=== PATIENT | male | born 1940 | race Caucasian/White ===

== ENCOUNTER 2024-05-22 02:11 | Outpatient (CLI) | payer OTHER, SELFPAY ==
--- NOTE | 2024-05-22 | DI.MRI_ITS ---
Exam(s) MR ABDOMEN WO/W EXAM: MR ABDOMEN WO/W CLINICAL HISTORY: [facility][id number], HCC C22.0 LIVER CANCER C22.8 S/P ABLATION TECHNIQUE: Multiplanar multisequence MRI was performed on a 1.5 johnny unit with both pre and post co ntrast infused sequences. Contrast injected sequences were performed following IV injection of 18 cc of Dotarem. COMPARISON: MR MR ABDOMEN W WO CONTRAST from 08/05/2023 MR MR ABDOMEN W WO CONTRAST from 10/07/[address] ABDOMEN PELVIS W CONTRAST from 01/20/2024 FINDINGS: Please note that this dictation is a copy of a dictation from [facility]. This case was sent for reading to [facility] as this type of case is unusual for this institut ion and the radiologists at this institution are not familiar with reading this type of involved live r case. VISUALIZED LUNG BASES: Tiny pleural effusions are evident There is a small amount of perihepatic ascites. LIVER: There is a history of cirrhosis and hepatocellular carcinoma and prior ablation procedure and Y90 radiation segmentectomy therapy. Liver is again noted to be cirrhotic in appearance. There are multiple areas of signal abnormality most probably corresponding to areas of prior treated lesions exhibiting liquefaction tumor necrosis. There is a large area of nodular appearing arterial phase enhancement in the right hepatic lobe which exhibits decreasing enhancement on the portal venous phase The previously described 7 mm arterial phase hyperenhancing lesion in segment 1 described on the prio r study of 10/07/2023 is not seen on today's study. In segment 2 there is a 17 mm lesion site of prior ablation with no enhancement; LiRads Treated Nonvi able (series [id number]/image 54) In segment 6 located posteromedially there is a site of prior ablation measuring 3.4 cm, not exhibiti ng enhancement; LiRads Treated Nonviable (series [id number]/image 58) In segment 6 anteromedially (series [id number]/image 54) there is a finding measuring 3.6 x 2.4 cm, sli ghtly decreased in size, with mild diffuse arterial internal enhancement and which exhibits washout o n delayed images. LiRads 3; treated possible viable lesion. Adjacent to this are branching areas of hypoenhancement best seen on series [id number]/image 61 which are concerning for tumor thrombus in the right portal vein branches and not definitely seen on the prior exam; LR_TIV In segment 7 there are previously treated adjacent lesions (series [id number]/image 70) with large area of central nonenhancement measuring 4 x 7.1 cm with surrounding large area of arterial phase nodular hy per enhancement in the right hepatic lobe and with more prominent nodular arterial enhancement when c ompared to the prior study and with subtle nodular areas of questionable delayed nodular washout (as seen on series [id number]/image 46); LiRads 4/5 BILIARY: There is no obvious gallbladder pathology. CBD mildly dilated. Measures 9-10 mm. PANCREAS: There is no evidence of pancreatic mass nor dilatation of the pancreatic duct. SPLEEN: Splenomegaly again noted. Cephalocaudal length of the spleen is 18 cm.Splenic and portal vein s are patent ADRENALS: There are no significant adrenal masses. KIDNEYS: No solid renal masses. No hydronephrosis.Bilateral benign cysts again noted. ABDOMINAL AORTA: Not enlarged and there is no significant para-aortic adenopathy. LYMPH NODES: Enlarged lymph nodes again noted in portal region and within the abdominal fat adjacent to the size hiatal hernia. This right-sided lymph node measures 2.7 cm., slightly larger than previou s ANTERIOR ABDOMINAL WALL/GI: There is no evidence of significant anterior abdominal wall hernia in the field of view of this study.Is no evidence of obvious bowel obstruction. OSSEOUS: There are no lytic osseous lesions in the field of view of this study. OTHER: Gastric fundal diverticulum again noted. IMPRESSION: 1. Large area of arterial hyperenhancement in the right hepatic lobe. 2. There is one lesion demonstrating washout and pseudo capsule formation consistent with probable r esidual tumor. 3. There is likely partially occlusive tumor thrombus in the right intrahepatic portal venous branche s. 4. There are multiple treated nonviable sites in the liver from prior ablation and Y 90 therapy as de scribed. 5. Enlarged lymph node noted within the hiatal hernia fat to the right of the involve stomach, this m easuring 2.7 cm, slightly larger than previous measurement. DATA REPOSITORY:
[2024-05-22] MEDS: Gadoterate meglumine 20 ML VIAL 18 ML IVP (08:37)
[2024-05-22] MEDS: Normal Saline - Diluent 50 ML VIAL IJ (08:38)
[2024-05-22 08:51] LABS: Abs Immature Grans 0.03 10^3/uL (0.0-0.06); Absolute Basophil Count 0.06 10^3/uL (0.0-0.2); Absolute Eosinophil Count 0.07 10^3/uL (0.0-0.7); Absolute Lymphocyte Count 0.91 10^3/uL (1.2-3.4); Absolute Monocyte Count 0.76 10^3/uL (0.1-0.8); Absolute Neutrophil Count 5.57 10^3/uL (1.2-6.7); Basophils % 0.8 %; Eosinophils % 0.9 %; HCT 35.6 % (40.0-50.0); HGB 11.2 g/dL (13.5-17.5); Immature Grans % 0.4 %; Lymphocytes % 12.3 %; MCH 28.9 pg (27.0-33.0); MCHC 31.5 % (32.0-36.0); MCV 92 fL (80-95); MPV 9.8 fL (8.0-11.0); Monocytes % 10.3 %; Neutrophils % 75.3 %; Platelet Count 130 10^3/uL (130-400); RBC 3.87 10^6/uL (4.36-5.78); RDW 16.6 % (11.8-14.1); RDW-SD 55.8 fL
[2024-05-22 09:02] LABS: INR 1.3 (0.9-1.1); Prothrombin Time 12.8 sec (9.1-11.1)
[2024-05-22 09:21] LABS: ALT 16 U/L (16-63); AST 30 U/L (15-37); Albumin 1.9 g/dL (3.4-5.0); Alkaline Phosphatase 257 U/L (46-116); Anion Gap 8.4 mmol/L (3-11); BUN 23 mg/dL (7-18); CO2 24.6 mmol/L (21.0-32.0); CREATININE 1.5 mg/dL (0.70-1.30); Calcium 9.1 mg/dL (8.5-10.1); Chloride 104 mmol/L (98-107); Estimated GFR 46.48 (mL/min/1.73m2); Glucose 222 mg/dL (74-106); Potassium 4.2 mmol/L (3.5-5.1); Sodium 137 mmol/L (136-145); Total Protein 7.7 g/dL (6.4-8.2)
--- NOTE | 2024-05-22 16:54 | DI.VRAD_ITS ---
Addendum created by Marilynn Castillo MD on 05/23/2024 5:23:56 PM EDT: Comparison to prior scan 10/07/[address] of 01/20/2024:Motion artifact does moderately limit the sensitivity of this examination. 7 mm arterial phase hyperenhancing lesion in segment 1 on prior exam, not well seen on today's exam demonstrates no appreciable enhancement or washout in this area. Observation 1: Segment 2, series [id number] image 54, 17 mm lesion site of prior ablation, with no enhancement. Lie rads treated nonviable. Observation 2: Segment 6 posteromedial, site of prior ablation, series 77543, image 58, measuring 3.4 cm, no enhancement. LI-RADS treatable nonviable Observation 3: Segment 6 anteromedial, series 22679, image 54, measures 36 x 24 mm, slightly decreased in size, with mild diffuse arterial phase internal iso enhancement enhancement which washes out on delayed phases. LI-RADS 3 treated possibly viable lesion. Adjacent to this are branching areas of hypoenhancement best seen on series 26890, image 61 which are concerning for tumor thrombus in right portal vein branches and not definitively seen on prior exam. LR-TIV Observation 4: segment 7 previously treated adjacent lesions, series 71504 image 70, large area of central non enhancement measuring 4 x 7.1 cm with surrounding large area of arterial phase nodular hyperenhancement in the right lobe more prominent nodular arterial phase enhancement than on the prior exam, with subtle nodular areas of questionable delayed nodular washout for example series 66771, image 46. LI-RADS 4/5 Initial report created on 05/22/2024 4:54:20 PM EDT: PROCEDURE INFORMATION: Exam: MR Abdomen Without and With Contrast Exam date and time: 05/22/2024 8:46 AM Age: 83 years old Clinical indication: Other: Radioembolization, restaging, liver cancer, S/P ablation TECHNIQUE: Imaging protocol: Magnetic resonance imaging of the abdomen without and with contrast. Contrast material: DOTAREM; Contrast volume: 18 ml; Contrast route: INTRAVENOUS (IV); COMPARISON: CT ABDOMEN PELVIS W CONTRAST 01/20/2024 12:09 AM FINDINGS: Pleural spaces: Trace pleural effusions. Liver: There is a large area of nodular appearing arterial phase hyperenhancement in the right lobe which decreases on the portal venous phase. A 37 mm lesion best seen on series 25309 image 53 demonstrates washout and pseudo capsule formation. Several other areas demonstrating no enhancement and fluid signal compatible with treated lesions with associated liquefaction tumor necrosis. There is some partial thrombus in the posterior right portal venous branches. The liver is nodular in contour, suggesting cirrhosis. Gallbladder and biliary ducts: Unremarkable. No stones. No ductal dilation. Pancreas: Unremarkable. No ductal dilation. Spleen: Splenomegaly at 18 cm. Adrenal glands: Unremarkable. No mass. Kidneys: There are multiple simple renal cysts. There are multiple simple renal cysts. Stomach and bowel: Gastric diverticulum in the fundal region. There is no evidence of intestinal perforation or obstruction. Intraperitoneal space: Mild perihepatic ascites. Vasculature: No abdominal aortic aneurysm. Lymph nodes: Periportal and Tootie aortic lymphadenopathy. 25 mm lymph node within a paraesophageal hiatal hernia sac. Bones/joints: Unremarkable. No suspicious lesions. Soft tissues: Unremarkable. IMPRESSION: Large area of arterial hyperenhancement in the right lobe of the liver, with 1 focal lesion demonstrating washout and pseudo capsule formation consistent with residual tumor. Likely partially occlusive tumor thrombus in the right portal venous branches. Dictated and Authenticated by: Marilynn Castillo MD. Orderin Marichuy Ray MD
== END 2024-05-22 02:31 ==
LOC: DI 02:11
PROVIDERS: PCP Internal Medicine; Visit Provider Internal Medicine Hematology & Oncology
DX: C22.0 Liver cell carcinoma (principal)
CPT/HCPCS: 74183; 80053; 82105; 85025; 85610

== ENCOUNTER 2024-06-01 03:34 | Outpatient (CLI) | payer OTHER, SELFPAY ==
[2024-06-01 12:46] LABS: Abs Immature Grans 0.06 10^3/uL (0.0-0.06); Absolute Basophil Count 0.04 10^3/uL (0.0-0.2); Absolute Eosinophil Count 0.13 10^3/uL (0.0-0.7); Absolute Lymphocyte Count 1.01 10^3/uL (1.2-3.4); Absolute Monocyte Count 0.47 10^3/uL (0.1-0.8); Absolute Neutrophil Count 4.51 10^3/uL (1.2-6.7); Basophils % 0.6 %; Eosinophils % 2.1 %; HCT 35.6 % (40.0-50.0); HGB 11.1 g/dL (13.5-17.5); Lymphocytes % 16.2 %; MCH 28.6 pg (27.0-33.0); MCHC 31.2 % (32.0-36.0); MCV 92 fL (80-95); MPV 9.7 fL (8.0-11.0); Monocytes % 7.6 %; Neutrophils % 72.5 %; Platelet Count 164 10^3/uL (130-400); RBC 3.88 10^6/uL (4.36-5.78); RDW 16.4 % (11.8-14.1); RDW-SD 55.2 fL; WBC 6.22 10^3/uL (4.4-10.8)
[2024-06-01 13:09] LABS: ALT 21 U/L (16-63); AST 35 U/L (15-37); Alkaline Phosphatase 263 U/L (46-116); Anion Gap 5.6 mmol/L (3-11); BUN 22 mg/dL (7-18); Bilirubin, Total 0.6 mg/dL (0.2-1.0); CO2 28.4 mmol/L (21.0-32.0); CREATININE 1.4 mg/dL (0.70-1.30); Calcium 9.4 mg/dL (8.5-10.1); Chloride 104 mmol/L (98-107); Estimated GFR 50.49 (mL/min/1.73m2); FREE T4 1.19 ng/dL (0.76-1.46); Glucose 268 mg/dL (74-106); Potassium 4.2 mmol/L (3.5-5.1); Sodium 138 mmol/L (136-145); Total Protein 7.9 g/dL (6.4-8.2)
[2024-06-02 09:03] LABS: AFP Tumor Marker 3.8 ng/mL (<8.1)
== END 2024-06-01 03:35 | disposition home or self-care (01) ==
LOC: LBO 03:34
PROVIDERS: PCP Internal Medicine; Visit Provider Internal Medicine Hematology & Oncology
DX: C22.0 Liver cell carcinoma (principal); Z79.899 Other long term (current) drug therapy
CPT/HCPCS: 36415; 80053; 82105; 84439; 84443; 85025

== ENCOUNTER 2024-06-29 03:48 | Outpatient (CLI) | payer OTHER, SELFPAY ==
[2024-06-29 12:24] LABS: Abs Immature Grans 0.02 10^3/uL (0.0-0.06); Absolute Basophil Count 0.04 10^3/uL (0.0-0.2); Absolute Eosinophil Count 0.13 10^3/uL (0.0-0.7); Absolute Lymphocyte Count 1.01 10^3/uL (1.2-3.4); Absolute Neutrophil Count 3.68 10^3/uL (1.2-6.7); Basophils % 0.7 %; Eosinophils % 2.4 %; HCT 33.9 % (40.0-50.0); HGB 10.8 g/dL (13.5-17.5); Immature Grans % 0.4 %; Lymphocytes % 18.8 %; MCH 28.8 pg (27.0-33.0); MCHC 31.9 % (32.0-36.0); MCV 90 fL (80-95); MPV 9.2 fL (8.0-11.0); Monocytes % 9.3 %; Neutrophils % 68.4 %; Platelet Count 117 10^3/uL (130-400); RBC 3.75 10^6/uL (4.36-5.78); RDW 16.8 % (11.8-14.1); RDW-SD 55.3 fL; WBC 5.38 10^3/uL (4.4-10.8)
[2024-06-29 13:55] LABS: ALT 23 U/L (16-63); AST 42 U/L (15-37); Albumin 2.3 g/dL (3.4-5.0); Alkaline Phosphatase 257 U/L (46-116); Anion Gap 6.9 mmol/L (3-11); BUN 31 mg/dL (7-18); Bilirubin, Total 0.5 mg/dL (0.2-1.0); CO2 26.1 mmol/L (21.0-32.0); CREATININE 1.3 mg/dL (0.70-1.30); Calcium 9.3 mg/dL (8.5-10.1); Chloride 110 mmol/L (98-107); Estimated GFR 55.19 (mL/min/1.73m2); FREE T4 0.96 ng/dL (0.76-1.46); Glucose 151 mg/dL (74-106); Potassium 5.1 mmol/L (3.5-5.1); Sodium 143 mmol/L (136-145); Total Protein 7.9 g/dL (6.4-8.2)
[2024-06-30 11:16] LABS: AFP Tumor Marker 4.5 ng/mL (<8.1)
== END 2024-06-29 03:49 | disposition home or self-care (01) ==
PROVIDERS: PCP Internal Medicine; Visit Provider Internal Medicine Hematology & Oncology
DX: C22.0 Liver cell carcinoma (principal); Z79.899 Other long term (current) drug therapy
CPT/HCPCS: 36415; 80053; 82105; 84439; 84443; 85025

== ENCOUNTER 2024-07-27 14:01 | Outpatient (CLI) | payer OTHER, SELFPAY ==
[2024-07-27 12:45] LABS: Abs Immature Grans 0.02 10^3/uL (0.0-0.06); Absolute Basophil Count 0.04 10^3/uL (0.0-0.2); Absolute Eosinophil Count 0.18 10^3/uL (0.0-0.7); Absolute Monocyte Count 0.53 10^3/uL (0.1-0.8); Absolute Neutrophil Count 4.72 10^3/uL (1.2-6.7); Basophils % 0.6 %; Eosinophils % 2.8 %; HGB 11.6 g/dL (13.5-17.5); Immature Grans % 0.3 %; Lymphocytes % 15.4 %; MCH 28.6 pg (27.0-33.0); MCHC 31.4 % (32.0-36.0); MCV 91 fL (80-95); MPV 9.8 fL (8.0-11.0); Monocytes % 8.2 %; Neutrophils % 72.7 %; Platelet Count 117 10^3/uL (130-400); RBC 4.06 10^6/uL (4.36-5.78); RDW 15.9 % (11.8-14.1); RDW-SD 53.6 fL; WBC 6.49 10^3/uL (4.4-10.8)
[2024-07-27 13:12] LABS: ALT 19 U/L (16-63); AST 32 U/L (15-37); Albumin 2.6 g/dL (3.4-5.0); Alkaline Phosphatase 218 U/L (46-116); Anion Gap 7.1 mmol/L (3-11); BUN 38 mg/dL (7-18); Bilirubin, Total 0.6 mg/dL (0.2-1.0); CO2 24.9 mmol/L (21.0-32.0); CREATININE 1.7 mg/dL (0.70-1.30); Calcium 9.5 mg/dL (8.5-10.1); Chloride 106 mmol/L (98-107); FREE T4 0.99 ng/dL (0.76-1.46); Glucose 157 mg/dL (74-106); Potassium 4.6 mmol/L (3.5-5.1); Sodium 138 mmol/L (136-145); TSH 4.64 uIU/mL (0.36-3.74); Total Protein 8.3 g/dL (6.4-8.2)
[2024-07-28 09:53] LABS: AFP Tumor Marker 5.2 ng/mL (<8.1)
== END 2024-07-27 14:02 | disposition home or self-care (01) ==
PROVIDERS: PCP Internal Medicine; Visit Provider Internal Medicine Hematology & Oncology
DX: C22.0 Liver cell carcinoma (principal); Z79.899 Other long term (current) drug therapy
CPT/HCPCS: 36415; 80053; 82105; 84439; 84443; 85025

== ENCOUNTER 2024-08-03 03:29 | Outpatient (CLI) | payer OTHER, SELFPAY ==
[2024-08-03 12:41] LABS: Abs Immature Grans 0.03 10^3/uL (0.0-0.06); Absolute Basophil Count 0.05 10^3/uL (0.0-0.2); Absolute Eosinophil Count 0.25 10^3/uL (0.0-0.7); Absolute Lymphocyte Count 1.05 10^3/uL (1.2-3.4); Absolute Monocyte Count 0.74 10^3/uL (0.1-0.8); Absolute Neutrophil Count 5.37 10^3/uL (1.2-6.7); Basophils % 0.7 %; Eosinophils % 3.3 %; HCT 35.6 % (40.0-50.0); HGB 11.4 g/dL (13.5-17.5); Immature Grans % 0.4 %; MCH 28.4 pg (27.0-33.0); MCV 89 fL (80-95); MPV 10.1 fL (8.0-11.0); Monocytes % 9.9 %; Neutrophils % 71.7 %; Platelet Count 144 10^3/uL (130-400); RBC 4.02 10^6/uL (4.36-5.78); RDW 15.6 % (11.8-14.1); RDW-SD 50.2 fL; WBC 7.49 10^3/uL (4.4-10.8)
[2024-08-03 13:05] LABS: ALT 16 U/L (16-63); AST 27 U/L (15-37); Albumin 2.6 g/dL (3.4-5.0); Alkaline Phosphatase 205 U/L (46-116); Anion Gap 9.6 mmol/L (3-11); BUN 30 mg/dL (7-18); Bilirubin, Total 0.7 mg/dL (0.2-1.0); CO2 23.4 mmol/L (21.0-32.0); CREATININE 1.4 mg/dL (0.70-1.30); Calcium 9.2 mg/dL (8.5-10.1); Chloride 106 mmol/L (98-107); Estimated GFR 50.49 (mL/min/1.73m2); FREE T4 1.23 ng/dL (0.76-1.46); Glucose 112 mg/dL (74-106); Potassium 4.9 mmol/L (3.5-5.1); Sodium 139 mmol/L (136-145); TSH 4.95 uIU/mL (0.36-3.74); Total Protein 8.3 g/dL (6.4-8.2)
[2024-08-04 08:44] LABS: AFP Tumor Marker 4.5 ng/mL (<8.1)
== END 2024-08-03 03:30 | disposition home or self-care (01) ==
PROVIDERS: PCP Internal Medicine; Visit Provider Internal Medicine Hematology & Oncology
DX: C22.0 Liver cell carcinoma (principal); Z79.899 Other long term (current) drug therapy
CPT/HCPCS: 36415; 80053; 82105; 84439; 84443; 85025

== ENCOUNTER 2024-08-31 09:12 | Outpatient (CLI) | payer OTHER, SELFPAY ==
[2024-08-31 13:15] LABS: Abs Immature Grans 0.03 10^3/uL (0.0-0.06); HCT 34.1 % (40.0-50.0); HGB 11.0 g/dL (13.5-17.5); Immature Grans % 0.5 %; MCH 28.9 pg (27.0-33.0); MCHC 32.3 % (32.0-36.0); MCV 90 fL (80-95); MPV 9.3 fL (8.0-11.0); Platelet Count 138 10^3/uL (130-400); RBC 3.80 10^6/uL (4.36-5.78); RDW 15.7 % (11.8-14.1); RDW-SD 51.3 fL; WBC 5.97 10^3/uL (4.4-10.8)
[2024-08-31 13:41] LABS: ALT 21 U/L (16-63); AST 30 U/L (15-37); Albumin 2.7 g/dL (3.4-5.0); Alkaline Phosphatase 210 U/L (46-116); Anion Gap 8.3 mmol/L (3-11); BUN 28 mg/dL (7-18); Bilirubin, Total 0.7 mg/dL (0.2-1.0); CO2 23.7 mmol/L (21.0-32.0); Calcium 9.2 mg/dL (8.5-10.1); Chloride 108 mmol/L (98-107); Estimated GFR 43.02 (mL/min/1.73m2); Glucose 107 mg/dL (74-106); Potassium 4.9 mmol/L (3.5-5.1); Sodium 140 mmol/L (136-145); TSH 5.12 uIU/mL (0.36-3.74); Total Protein 8.0 g/dL (6.4-8.2)
== END 2024-08-31 09:13 | disposition home or self-care (01) ==
LOC: LBO 09:12
PROVIDERS: PCP Internal Medicine; Visit Provider Internal Medicine Hematology & Oncology
DX: C22.0 Liver cell carcinoma (principal); Z79.899 Other long term (current) drug therapy
CPT/HCPCS: 36415; 80053; 82105; 84439; 84443; 85025

== ENCOUNTER 2024-09-26 04:41 | Outpatient (CLI) | payer OTHER, SELFPAY ==
[2024-09-26 12:12] LABS: Abs Immature Grans 0.02 10^3/uL (0.0-0.06); HCT 33.5 % (40.0-50.0); HGB 11.0 g/dL (13.5-17.5); Immature Grans % 0.4 %; MCH 29.7 pg (27.0-33.0); MCHC 32.8 % (32.0-36.0); MCV 91 fL (80-95); MPV 9.6 fL (8.0-11.0); Platelet Count 131 10^3/uL (130-400); RBC 3.70 10^6/uL (4.36-5.78); RDW 15.9 % (11.8-14.1); RDW-SD 53.0 fL; WBC 5.71 10^3/uL (4.4-10.8)
[2024-09-26 12:45] LABS: ALT 27 U/L (16-63); AST 45 U/L (15-37); Albumin 2.3 g/dL (3.4-5.0); Alkaline Phosphatase 253 U/L (46-116); Anion Gap 9.0 mmol/L (3-11); BUN 20 mg/dL (7-18); Bilirubin, Total 0.9 mg/dL (0.2-1.0); CO2 24.0 mmol/L (21.0-32.0); Calcium 8.9 mg/dL (8.5-10.1); Chloride 107 mmol/L (98-107); Estimated GFR 43.02 (mL/min/1.73m2); Glucose 165 mg/dL (74-106); Potassium 4.7 mmol/L (3.5-5.1); Sodium 140 mmol/L (136-145); TSH 3.96 uIU/mL (0.36-3.74); Total Protein 7.3 g/dL (6.4-8.2)
== END 2024-09-26 04:42 | disposition home or self-care (01) ==
LOC: LBO 04:41
PROVIDERS: PCP Internal Medicine; Visit Provider Internal Medicine Hematology & Oncology
DX: C22.0 Liver cell carcinoma (principal); Z79.899 Other long term (current) drug therapy
CPT/HCPCS: 36415; 80053; 82105; 84439; 84443; 85025

== ENCOUNTER 2024-10-26 14:02 | Outpatient (CLI) | payer OTHER, SELFPAY ==
[2024-10-26 10:16] LABS: Abs Immature Grans 0.07 10^3/uL (0.0-0.06); HCT 31.7 % (40.0-50.0); HGB 10.3 g/dL (13.5-17.5); Immature Grans % 0.7 %; MCH 29.9 pg (27.0-33.0); MCHC 32.5 % (32.0-36.0); MCV 92 fL (80-95); MPV 10.6 fL (8.0-11.0); Platelet Count 141 10^3/uL (130-400); RBC 3.45 10^6/uL (4.36-5.78); RDW 17.6 % (11.8-14.1); RDW-SD 58.3 fL; WBC 10.73 10^3/uL (4.4-10.8)
[2024-10-26 10:55] LABS: ALT 25 U/L (16-63); AST 49 U/L (15-37); Albumin 1.6 g/dL (3.4-5.0); Alkaline Phosphatase 408 U/L (46-116); Anion Gap 10.8 mmol/L (3-11); BUN 43 mg/dL (7-18); Bilirubin, Total 3.3 mg/dL (0.2-1.0); CO2 19.2 mmol/L (21.0-32.0); Calcium 8.7 mg/dL (8.5-10.1); Chloride 102 mmol/L (98-107); Estimated GFR 25.18 (mL/min/1.73m2); Glucose 211 mg/dL (74-106); Potassium 4.9 mmol/L (3.5-5.1); Sodium 132 mmol/L (136-145); TSH 7.49 uIU/mL (0.36-3.74); Total Protein 7.1 g/dL (6.4-8.2)
[2024-10-26 16:10] LABS: Bilirubin, Direct 2.6 mg/dL (0.0-0.2)
--- NOTE | 2024-10-26 20:02 | NUR.NOTE ---
As acting HS accessed pt chart per request of [facility] ([facility]) for continuation of care.
== END 2024-10-26 14:03 | disposition home or self-care (01) ==
LOC: LBO 14:02
PROVIDERS: PCP Internal Medicine; Visit Provider Internal Medicine Hematology & Oncology
DX: C22.0 Liver cell carcinoma (principal); Z79.899 Other long term (current) drug therapy
CPT/HCPCS: 36415; 80053; 82105; 82248; 84439; 84443; 85025

== ENCOUNTER 2024-10-30 14:21 | Inpatient (IN) | payer OTHER, SELFPAY ==
--- NOTE | 2024-10-30 14:37 | HPE_ITS ---
Date of service: 10/30/24 Time of Service: 14:37 Assessment and Plan Assessment and plan (1) E coli bacteremia: Status: Acute Assessment and plan: Sensitive to ceftriaxone 14 days of IV ceftriaxone 2gm antibiotics in the setting of Hx of HCC and stent placement s/p portal vein thrombosis and shock PICC in place -care as per nursing then d/c at discharge (2) MEE (acute kidney injury): Status: Acute Assessment and plan: As per Hx from [facility] [place] in [place] (3) Nicotine dependence: Status: Acute Assessment and plan: Remote - no NRT (4) HCC (hepatocellular carcinoma): Status: Acute Assessment and plan: Since 2018 mets causing portal thrombosis S/p stent placement at [facility] Outpatient follow-up with oncology - was getting infusions with local oncology monthly and MRI appointment missed Palliative care consult Physical therapy consult (5) 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: Status: Acute Assessment and plan: As above (6) Cholangitis: Status: Acute Assessment and plan: Hx of - as per [facility] [place] - was on Zosyn at [facility] On ceftriaxone as per point 1 (7) Diabetes: Status: Chronic Assessment and plan: Finger stick AC and HS with SSI coverage - elevated blood sugar in the setting of stress dose steroids A1C pending Was on metformin at home (8) On deep vein thrombosis (DVT) prophylaxis: Status: Acute Assessment and plan: On LMWH Discussed with Dr Vo History of Present Illness History of Present Illness Chief Complaint: E. coli bacteremia Narrative: This 83 years old male patient with a past medical history of nicotine dependence ,MEE, hepatocellular adnocarcinoma with mets to the portal vein and thrombus formation and shock at [facility] with subsequent transfer to [facility] was transferred to [facility] today and admitted to the medical surgical floor by the hospitalist team for ongoing IV antibiotic therapy for E. Coli bacteremia and physical therapy. Blood cultures from [facility] showed E. Coli sensitive to ceftriaxone. The patient underwent ERCP and stent placement at [facility]. Patient denies chills, fever, chest pain, nausea, vomiting, constipation, diarrhea or dysuria. Full code status confirmed. Confirmed not taking cholestyramine, ongoing metformin, pantoprazole and atorvastatin. 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 (Acute) HCC (hepatocellular carcinoma) (Acute) Portal vein thrombosis (Acute) Nicotine dependence (Acute) MEE (acute kidney injury) (Acute) E coli bacteremia (Acute) Social History Smoking/Tobacco Use Status: Former Tobacco Use Quit Date: 01/29/86 Smoking risk assessment performed?: Yes Alcohol Intake: former Drug use: Current Sobriety Substance use type: painkillers 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 Time Spent Time spent with Patient: >75 minutes Time was spent: preparing to see the patient(eg.review tests), obtaining and/or reviewing separately otained hiistory, ordering medications,tests, procedures, referring, communicating with other health anesthesiologist and critical care, indepentently interpreting results, counseling the patient, care coordination and other
[2024-10-30 15:23] VITALS: BP 118/67; PULSE 77; RESP 18; O2SAT 98
[2024-10-30 15:57] VITALS: BP 118/67; PULSE 77; RESP 20; O2SAT 98
[2024-10-30] MEDS: cefTRIAXone 2 GM/50 ML BAG IVPB (16:59)
--- NOTE | 2024-10-30 17:34 | W.PC.ACHO ---
Registration Status: ADM IN Primary Language: Preferred Language: Most Recent Vital Signs Pulse 77 10/30/24 15:57 Respiratory Rate 20 10/30/24 15:57 Respiratory Effort Normal 10/30/24 15:57 Blood Pressure 118/67 10/30/24 15:57 Pulse Oximetry 98 10/30/24 15:57 Oxygen Delivery Method Room Air 10/30/24 15:57 Oxygen Flow Rate 0 10/30/24 15:57 Pain Level 0 10/30/24 15:57 Active Medications Generic Name Dose Route Start Last Admin Trade Name Freq PRN Reason Stop Dose Admin Ceftriaxone Sodium/Dextrose 2 gm in 50 mls @ 100 mls/hr 10/30/24 16:00 10/30/24 16:59 Rocephin IVPB 100 mls/hr Q24H JULIA Administration Insulin Aspart 0 units 10/30/24 17:00 10/30/24 17:02 Insulin Aspart 300 Units/3 Ml Pen SC Not Given 0800,1200,1700 JULIA Protocol IV IV Catheter Type [Left Upper PICC Line arm] Diet Orders Category Date Time Status DIET [Diabetes Consistent CHO/Heart Healthy] [DIET] Nutrition 10/30/24 Dinner Active Lggjy-uw-Yxob Documentation Fingerstick Glucose Start: 10/30/24 14:32 Freq: AC & HS Status: Active Protocol: Activity Type Activity Date Activity User E-sign Co-sign Detail Recorded Client Recorded Date Recorded By Document 10/30/24 16:59 BKG DAEMON(3) NVT-BG05 10/30/24 16:59 BKG DAEMON(4) Falls Risk Assessment History of Falls Previous History 10/30/24 15:57 Ambulatory Aids Uses ambulatory device 10/30/24 15:57 Tubes/Lines None 10/30/24 15:57 Gait Evaluation W/no contributing factors 10/30/24 15:57 Cognition No cognitive impairment 10/30/24 15:57 Fall Total Score 40 10/30/24 15:57 Level of Risk Moderate Risk 10/30/24 15:57 Problems Diabetes (Chronic) On deep vein thrombosis (DVT) prophylaxis (Acute) Cholangitis (Acute) 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 Information / Comments: Report received from: Report was received from Renaldo at 1247 from [facility]. Patient arrived stable and RN will continue to monitor.
[2024-10-30 20:31] VITALS: BP 116/62; PULSE 76; RESP 18; TEMP 35.7; O2SAT 92
[2024-10-30] MEDS: Sennosides/Docusate Sodium TAB 2 TAB PO (21:06)
[2024-10-30] MEDS: Atorvastatin 20 MG TAB PO (21:06)
[2024-10-30] MEDS: Normal Saline Flush 10 ML SYR IVP (21:07)
[2024-10-31 07:01] LABS: Abs Immature Grans 0.02 10^3/uL (0.0-0.06); HCT 26.9 % (40.0-50.0); HGB 8.7 g/dL (13.5-17.5); Immature Grans % 0.4 %; MCH 29.3 pg (27.0-33.0); MCHC 32.3 % (32.0-36.0); MCV 91 fL (80-95); MPV 10.1 fL (8.0-11.0); RBC 2.97 10^6/uL (4.36-5.78); RDW 17.5 % (11.8-14.1); RDW-SD 58.8 fL; WBC 5.36 10^3/uL (4.4-10.8)
[2024-10-31 07:13] LABS: ALT 31 U/L (16-63); AST 83 U/L (15-37); Albumin 1.7 g/dL (3.4-5.0); Alkaline Phosphatase 317 U/L (46-116); Anion Gap 7.7 mmol/L (3-11); BUN 44 mg/dL (7-18); Bilirubin, Total 1.6 mg/dL (0.2-1.0); CO2 23.3 mmol/L (21.0-32.0); Calcium 8.8 mg/dL (8.5-10.1); Chloride 109 mmol/L (98-107); Estimated GFR 29.36 (mL/min/1.73m2); Glucose 142 mg/dL (74-106); Magnesium 1.9 mg/dL (1.8-2.4); Potassium 3.8 mmol/L (3.5-5.1); Sodium 140 mmol/L (136-145); Total Protein 6.1 g/dL (6.4-8.2)
[2024-10-31 07:53] LABS: Platelet Count 96 10^3/uL (130-400)
[2024-10-31 07:54] LABS: RBC Morphology Normal
--- NOTE | 2024-10-31 08:38 | PDOC.CMIN ---
Date of service: 10/31/24 Time of Service: 08:38 Care Management Initial Assmt Initial Assessment Reason for Hospitalization: E. Coli Bacteremia, Functional Status/Living Situation Patient Presentation: On 10/30/24 Dave was transferred [id number] from [facility] to [facility] for IV ABX and PT. He resides in [place] with his Fer, who has Alzheimer disease. Their 2 daughters ,Caren and Mckenzie, are currently staying with her while he is being hospitalized. Dave is eager to discharge home and is agreeable to returning to the hospital daily for IV infusions. At baseline, pt is active and independent, although outpatient PT may be beneficial for balance, per PT. 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 [facility] and reports that his primary care is in [place]. Dave has known hepatocellular carcinoma and had been receiving monthly outpatient infusions through [facility]. Patient may benefit from a outpatient Palliative care consult. Town of Residence: [place] Resides with: Spouse (Fer) Significant Other/Family: Local (Daughters Caren and Fer) Employment Status: Retired Instrumental Activities of Daily Living (ADLs): Independent Medications Medication Management: No Issues/Barriers identified Physical Functioning/Mobility Assistive Device: None Advance Directives Advance Directives: Do you have an Advance Directive: N 10/30/24, 15:19 AD On File at [facility]: N 05/04/24, 10:24 Date Asked 10/30/24 10/30/24, 15:19 AD Date Reviewed COLST On File at [facility] No 10/30/24, 15:19 COLST Date Scanned Code Status Resuscitation Status Full Code Insurance Coverage/Financial Issues [place]: [place] - [id number] Financial Issues: None identified Care Team Visit Care Team Role Provider Type Iman Howard APRN MD [facility] STAFF PHYSICIAN Bret Wilcox Primary Care Provider NON-[facility] STAFF PHYSICIAN Silvana Sarah Other Providers REG OCCUPATIONAL THERAPIST Ninoska Reyes RDN, [facility] Other Providers [employer] Betzy Hurley Other Providers OTHER Martin Sesay RDN Other Providers [employer] Aman Vo MD Admit Provider [facility] STAFF PHYSICIAN Attending Provider Discharge Potential Discharge Needs: Consult Consult Services Needed: Palliative Anticipated Barriers to Discharge: None Identified Patient/Family Education Needs: Review discharge instructions, discuss Ask Me Three Transportation: Private vehicle Plan: Anticipate Dave will discharge home once medically cleared by the hospitalist with outpatient IV ABX coordinated through [facility] infusion. Patient will follow up with community providers and discharge plan of care as directed. Outpatient follow up with Palliative may be beneficial. CM will continue to follow and support coordination of discharge needs as they are identified. 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
[2024-10-31 08:57] VITALS: BP 130/74; PULSE 72; RESP 16; O2SAT 99
[2024-10-31] MEDS: Insulin Aspart 300 UNITS/3 ML PEN SC (09:18)
[2024-10-31] MEDS: Enoxaparin 30 MG/0.3 ML SYR SC (09:20)
[2024-10-31] MEDS: Sennosides/Docusate Sodium TAB 2 TAB PO (09:21)
[2024-10-31] MEDS: Pantoprazole 40 MG TABCR PO (09:21)
[2024-10-31] MEDS: Normal Saline Flush 10 ML SYR IVP (09:22)
--- NOTE | 2024-10-31 10:28 | IN_ITS ---
PT Notes Visit Reasons: Bacteremia s/p shock/ UTI & hepatocel carcinoma w Physical Therapy Inpatient Initial Evaluation Date: 10/31/2024 Referring Doctor: [] Iman Howard NP PT Orders: PT CONSULT: Safety consult for discharge, evaluation for assistive device Precautions: Activity with assistance Patient Profile/Admitting Diagnosis: Patient is an 83-year-old male presented to [facility] with history of hepatocellular adenocarcinoma with mets to portal vein. Patient found to have thrombus in shock. He was transferred to [facility] ICU where he underwent ERCP and stent placement for Choleyangitis. Patient transferred to [facility] for IV antibiotics due to E. 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 His daughters are currently taking care of her. He is ambulatory with a cane ( right hand) for outdoor/ no device indoor. Pt drives. He resides in a [facility] with 3 [address] with rail. Pt has a walk in shower, (+) drives Equipment Owned/DME: cane Subjective: Pt reports he wears shoes indoor and outdoor. He states he feels more stable with his shoes on. Pt reports he would like to get home as quickly as possible to be with his of 59 years. Objective: [] General Observation: elderly male semifowler position in bed watching TV. Mental Status: A+Ox4, cooperative, able to follow all instructions. Agreeable to participate in PT assessment Pain: denies ROM: [] BUE: WNL BLE : WFL limited DF to neutral Strength: [] B Upper Extremity: grossly 4/5 no MMT d/t abdominal surgery Right Lower Extremity: hip 3/5 knee >3/5 ankle 3/5 Left Lower Extremity: rossly >3/5 Sensation: intact Bed Mobility/Transfers: [] Supine to sit Independent Sit to stand SBA Stand to sit SBA Bed to chair SBA with FWW Gait: amb with FWW 50 feet with reciprocal pattern SBA, Stairs: 3 4 steps? and 2 6 steps with rail and SPC SBA with cues for pacing and SPC placement for sequencing Balance: [] Static Sitting: Normal Dynamic Sitting: Good plus Static Standing: Good without upper extremity support Dynamic Standing: Fair without upper extremity support Special Tests: [] Mobility Limitations Standardized Measure [] [facility] AM-PAC 6 clicks Basic Mobility Inpatient Short Form: [] Raw Score: 22 CMS Score: 20.91% deficit Informed Consent/Education: Patient instructed in purpose of PT consult. Treatment: 91299 ( without shoes) -Facilitated safe and correct performance of level surface ambulation covering a distance of 200 feet using SPC with standby assist and wheelchair follow for safety. Did not report of any increased pain. Denied headache, chest pain, and lightheadedness throughout activity. Minimal verbal cueing provided for AD management, directional changes, and posture -Facilitated safe and correct performance of level surface ambulation covering a distance of 60 feet using no device with contact-guard assist LOB x 2 to the right however did not require external support to regain. and wheelchair follow for safety. Did not report of any increased pain. Denied headache, chest pain, and lightheadedness throughout activity. Minimal verbal cueing provided for AD management, directional changes, and posture Assessment: Patient presents with clinical signs and symptoms consistent with current/admitting diagnoses that have resulted to mobility limitations, gait instability, generalized weakness, and impairment of motor control as demonstrated by the following impairment level findings: 1. Decreased strength to BLE major muscle groups right greater than left 2. Impaired standing balance 3. Limitation of joint range of motion in bilateral ankles 4. Impaired functional activity tolerance Impairments are contributing to the following functional limitations: 1. Inability to safely ambulate without assistive device 2. Increase completion time for mobility ADL performance 3. Increased fall risk 4. Difficulty performing stairs without assistive device Patient is assessed as a low complexity based on the following: History: 83-year-old male with impairment level findings, functional limitations, and past medical history as indicated above Examination: Demonstrable impairment in strength, balance, and mobility level with underlying impairments and functional limitations as documented above Presentation:evolving Decision Making: low Goals: 1. independent transfers with SPC 2. Idependent ambulation with SPC >300 feet x 2 3. Independent HEP for balance and strengthening 4. Independent 3 steps with rail and SPC to safely enter ansd exit home Plan of Care/Treatment Plan: 1-2x/day, 7 days/week x 1 week. Plan of care has been reviewed with the [employer] [employer]PA[employer] providing the service under Physical Therapy direction. Initiate Physical Therapy intervention for strengthening, bed mobility, transfers, gait, stairs, balance training, use of assistive device. DISCHARGE RECOMMENDATIONS: Home with HH PT versus outpatient PT for balance retraining TREATMENT CODE/TIME: 89594, [id number] Thank you for the opportunity to participate in the care of this patient. Ebony Liu, PT [facility]
[2024-10-31 11:14] LABS: Hemoglobin A1C 6.2 % (<5.7)
--- NOTE | 2024-10-31 12:33 | CMDISCH_ITS ---
Date of service: 10/31/24 Time of Service: 12:33 LACE Index Scoring Tool Questions: Length of Stay (in days): 1 Was the patient admitted via the E.D.?: No Comorbidities: Diabetes w/o Complication E.D. Visits: 0 Answers: Total Score: 2 Risk of Readmission: Low Risk Care Management Discharge Plan Reason for Hospitalization: Bacteremia Discharge Plan: Dave is discharged home with a plan for outpatient IV ABX. He is planning to be transported via private vehicle with family. Patient agrees to return to [facility] daily for outpatient infusions. Patient will follow up with community providers and continue per the discharge plan of care. No new services are ordered prior to discharge. Patient/Family Education Needs: Review discharge instructions and plan for outpatient follow-up. Discuss ask me three. Services Needed at Discharge: Infusion Therapy (Daily infusions at [facility])
[2024-10-31] MEDS: cefTRIAXone 2 GM/50 ML BAG IVPB (15:30)
--- NOTE | 2024-10-31 15:53 | DSE_ITS ---
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: Status: Acute (6) Cholangitis: Status: Acute (7) Diabetes: Status: Chronic Discharge Plan Disposition Patient Disposition: Home Condition: Improving Discharge Details Reason For Visit: Bacteremia s/p shock/ UTI & hepatocel carcinoma w Admit Date/Time: 10/30/24 14:21 Admit Provider: Aman Vo Attending Provider: Aman Vo Primary Care Provider: Bret Wilcox Hospital Course Hospital Course: This is an 83-year-old male patient complex past medical history recently hospitalized at [facility] with acute cholangitis, portal vein thrombosis, hepatic cellular carcinoma who was admitted here under swing level status to treat complete a 14-day course of ceftriaxone for E. coli bacteremia. He arrives here medically stable. He is eating and drinking bowels and bladder functioning. He had a PICC line in place. He is requesting discharge to home to complete outpatient Rocephin in the infusion room. PT evaluation completed and recommendations are for outpatient PT versus home health. He is planning on driving himself to the infusion room so will not qualify for home health PT. Discharge discussed with Dr. Vo Home Meds and New Rx's Prescriptions: New ceftriaxone in dextrose,iso-os 2 gram/50 mL Piggyback 2 g IVPB Q24H Qty: 0 0RF Continued atorvastatin [Lipitor] 20 mg tablet 20 mg PO DAILY Anti-Itch (menthol-camphor) 0.5-0.5 % lotion 1 applic topical DAILY PRN cetirizine [24Hour Allergy] 10 mg tablet 10 mg PO DAILY PRN pantoprazole 20 mg tablet,delayed release (DR/EC) 20 mg PO DAILY Held metformin 500 mg tablet 500 mg PO BID Hold Instructions: Until discussed with your outpatient provider Discharge Instructions Instructions: Sepsis in adults, Acute kidney injury Additional Instructions: Presented to outpatient infusion for daily IV antibiotics Keep your PICC line clean dry and intact wrap to keep dry while bathing Continue to hold your metformin until discussed with your primary care provider Outpatient lab work ordered for November 06, these results will be reviewed by your primary care provider Stand Alone Forms: Nursing Discharge Form Referrals: Bret Wilcox [Primary Care Provider, Medicine] Referral Note: Please call your PCP office to set up a follow up appointment. Activity:: Activity as Tolerated Equipment/Supplies:: No Equipment Needed Diet:: As Tolerated Discharge Orders Discharge Orders: Discharge Order (Routine); Ordered 10/31/24 Ordered By: Susan Marie Discharge Data Discharge Date/Time-TO BE ENTERED AT DEPARTURE: 10/31/24 16:36 DS: Summary Time Spent with Patient providing and/or coordinating discharge services: Greater than 30 minutes Status at Discharge Functional status at discharge: independent ambulation Overall status at discharge: patient is progressing back to baseline Mental Status: mental status grossly normal Speech and Movement: speech and movement normal Mood: congruent mood Affect: normal affect Exam Narrative Exam Narrative: Elderly male with stated age no acute distress head is atraumatic eyes nonicteric noninjected cardiovascular regular rate and rhythm respirations even and unlabored moves all extremities neurologic he is awake alert and oriented no focal deficits psychiatric appropriate mood and affect Psych Mental Status: mental status grossly normal Speech and Movement: speech and movement normal Mood: congruent mood Affect: normal affect DS: Data Vitals/I&O Vitals and I&O: Vital Signs Temperature 35.7 C L 10/30/24 20:31 Temperature Source Temporal Artery Scan 10/30/24 20:31 Pulse 72 10/31/24 08:57 Respiratory Rate 16 10/31/24 08:57 Respiratory Effort Normal 10/30/24 15:57 Blood Pressure 130/74 10/31/24 08:57 Blood Pressure Mean 92 10/31/24 08:57 Pulse Oximetry 99 10/31/24 08:57 Oxygen Delivery Method Room Air 10/31/24 08:57 Oxygen Flow Rate 0 10/31/24 08:57 Pain Level 0 10/30/24 20:31 Intake & Output 10/30/24 10/31/24 10/31/24 23:59 11:59 23:59 Intake Total 50 / 50 220 / 220 Balance 50 / 50 220 / 220 Weight 89.1 kg Intake: IV 50 / 50 Oral 220 / 220 Other: Urine Color Straw Straw Urine Appearance Clear Clear Urine Odor Strong Normal Comment per pt Stool Size Small Small Stool Characteristics Soft Soft Brown Brown Data Completed and Pending Labs on day of discharge: Labs from last 24 hours 10/31/24 06:20 WBC 5.36 RBC 2.97 L Hgb 8.7 L Hct 26.9 L MCV 91 MCH 29.3 MCHC 32.3 RDW 17.5 H Plt Count 96 L MPV 10.1 Immature Gran % 0.4 Neutrophils % 80.6 Lymphocytes % 11.9 Monocytes % 6.7 Eosinophils % 0.4 Basophils % 0.0 Nucleated RBC % 0.0 Absolute Neutrophils 4.32 Absolute Lymphocytes 0.64 L Absolute Monocytes 0.36 Absolute Eosinophils 0.02 Absolute Basophils 0.00 RBC Morphology Normal Sodium 140 Potassium 3.8 Chloride 109 H Carbon Dioxide 23.3 Anion Gap 7.7 BUN 44 H Creatinine 2.2 H Est GFR (CKD-EPI 2020) 29.36 Glucose 142 H Hemoglobin A1c 6.2 H Calcium 8.8 Magnesium 1.9 Total Bilirubin 1.6 H AST 83 H ALT 31 Alkaline Phosphatase 317 H Total Protein 6.1 L Albumin 1.7 L PFSH All Active Problems (Updated 10/30/24 @ 15:04 by Iman Howard APRN) Diabetes (Chronic) On deep vein thrombosis (DVT) prophylaxis (Acute) Cholangitis (Acute) 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 (Acute) HCC (hepatocellular carcinoma) (Acute) Portal vein thrombosis (Acute) Nicotine dependence (Acute) MEE (acute kidney injury) (Acute) E coli bacteremia (Acute) Social History Smoking/Tobacco Use Status: Former Tobacco Use Quit Date: 01/29/86 Smoking risk assessment performed?: Yes Alcohol Intake: former Drug use: Current Sobriety Substance use 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
--- NOTE | 2024-10-31 16:17 | CHAPLAIN ---
According to nursing staff Dave is being discharged this afternoon to return home to [place] where his , with Alzheimer's is in hospice care. Dave said he'll be leaving as soon as his daughter arrives with this clothes. His two daughters are taking care of his . Dave said he's originially from [place], but has lived in [place] for many years. He did not mention that his was in hospice care, and as he didn't, I didn't bring it up. When I asked if he lived alone, he said, no, with my and my dog. He was at [facility] before here, so he is eager to get home.
== END 2024-10-31 16:36 | disposition home or self-care (01) | DRG 871 ==
PROVIDERS: Admitting Provider Hospitalist; PCP Internal Medicine; Responsible Provider Nurse Practitioner Acute Care; Visit Provider Hospitalist
DX: R78.81 Bacteremia (principal); I81 Portal vein thrombosis; N17.9 Acute kidney failure, unspecified; C22.0 Liver cell carcinoma; K83.09 Other cholangitis; Z79.2 Long term (current) use of antibiotics; B96.20 Unspecified Escherichia coli [E. coli] as the cause of diseases classified elsewhere; F17.210 Nicotine dependence, cigarettes, uncomplicated; E11.9 Type 2 diabetes mellitus without complications
CPT/HCPCS: 00123; 36415; 80053; 97161; 97530; 83036; 83735; 85025; 99223; 99239; J0696; J1650; J1815

== ENCOUNTER 2024-11-13 00:53 | Outpatient (RCR) | payer MEDICARE, SELFPAY ==
[2024-11-01] MEDS: cefTRIAXone 2 GM/50 ML BAG IVPB (12:54)
[2024-11-01] MEDS: Normal Saline Flush 10 ML SYR IVP (12:55)
[2024-11-02] MEDS: Normal Saline Flush 10 ML SYR IVP (12:47)
[2024-11-02] MEDS: cefTRIAXone 2 GM/50 ML BAG IVPB (12:47)
[2024-11-03] MEDS: cefTRIAXone 2 GM/50 ML BAG IVPB (12:44)
[2024-11-03] MEDS: Normal Saline Flush 10 ML SYR IVP (12:45)
[2024-11-04 12:47] VITALS: BP 124/71; PULSE 87; RESP 16; TEMP 36.1; O2SAT 98
[2024-11-04] MEDS: Normal Saline Flush 10 ML SYR IVP (12:53)
[2024-11-04] MEDS: cefTRIAXone 2 GM/50 ML BAG IVPB (12:53)
[2024-11-06] MEDS: cefTRIAXone 2 GM/50 ML BAG IVPB (12:44)
[2024-11-06] MEDS: Normal Saline Flush 10 ML SYR IVP (12:45)
[2024-11-06 13:13] LABS: HCT 29.2 % (40.0-50.0); HGB 9.2 g/dL (13.5-17.5); MCH 30.0 pg (27.0-33.0); MCHC 31.5 % (32.0-36.0); MCV 95 fL (80-95); MPV 11.7 fL (8.0-11.0); RBC 3.07 10^6/uL (4.36-5.78); RDW 20.5 % (11.8-14.1); RDW-SD 69.2 fL; WBC 5.97 10^3/uL (4.4-10.8)
[2024-11-06 13:30] LABS: ALT 39 U/L (16-63); AST 60 U/L (15-37); Albumin 1.8 g/dL (3.4-5.0); Alkaline Phosphatase 350 U/L (46-116); Anion Gap 8.7 mmol/L (3-11); BUN 20 mg/dL (7-18); Bilirubin, Total 1.2 mg/dL (0.2-1.0); CO2 20.3 mmol/L (21.0-32.0); Calcium 8.0 mg/dL (8.5-10.1); Chloride 110 mmol/L (98-107); Estimated GFR 50.49 (mL/min/1.73m2); Glucose 204 mg/dL (74-106); Potassium 3.9 mmol/L (3.5-5.1); Sodium 139 mmol/L (136-145); Total Protein 6.3 g/dL (6.4-8.2)
[2024-11-06 13:50] LABS: Platelet Count 75 10^3/uL (130-400)
[2024-11-07] MEDS: cefTRIAXone 2 GM/50 ML BAG IVPB (12:45)
[2024-11-07] MEDS: Normal Saline Flush 10 ML SYR IVP (12:51)
[2024-11-08] MEDS: cefTRIAXone 2 GM/50 ML BAG IVPB (12:40)
[2024-11-08] MEDS: Normal Saline Flush 10 ML SYR IVP (12:40)
[2024-11-09] MEDS: cefTRIAXone 2 GM/50 ML BAG IVPB (12:37)
[2024-11-09] MEDS: Normal Saline Flush 10 ML SYR IVP (12:37)
[2024-11-10] MEDS: cefTRIAXone 2 GM/50 ML BAG IVPB (12:47)
[2024-11-10] MEDS: Normal Saline Flush 10 ML SYR IVP (12:48)
[2024-11-11 12:36] VITALS: BP 116/67; PULSE 82; O2SAT 94
[2024-11-11] MEDS: cefTRIAXone 2 GM/50 ML BAG IVPB (12:48)
[2024-11-11] MEDS: Normal Saline Flush 10 ML SYR IVP (12:49)
[2024-11-12] MEDS: Normal Saline Flush 10 ML SYR IVP (12:37)
[2024-11-12] MEDS: cefTRIAXone 2 GM/50 ML BAG IVPB (12:37)
[2024-11-13] MEDS: Normal Saline Flush 10 ML SYR IVP (12:58)
[2024-11-13] MEDS: cefTRIAXone 2 GM/50 ML BAG IVPB (12:59)
[2024-11-13] MEDS: Bacitracin 1 PACKET (13:45)
--- NOTE | 2024-11-13 13:46 | NUR.NOTE ---
Nursing Note: Phone call place to [facility] about increased swelling in both patient lower extremities. PT has new increased swelling, pitting +3 edema to right leg, and pitting +2 edema to left. A note in pt [facility] chart noted pt had trace edema on 10/23/24. 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
== END 2024-11-28 23:59 | disposition home or self-care (01) ==
LOC: INF 00:53
PROVIDERS: PCP Internal Medicine; Visit Provider Nurse Practitioner Acute Care
DX: R78.81 Bacteremia (principal); B96.20 Unspecified Escherichia coli [E. coli] as the cause of diseases classified elsewhere
CPT/HCPCS: 36569; 80053; 85027; 96365; J0696

== ENCOUNTER 2024-11-30 04:06 | Outpatient (CLI) | payer MEDICARE, SELFPAY ==
[2024-11-30 09:03] LABS: Abs Immature Grans 0.01 10^3/uL (0.0-0.06); HCT 31.4 % (40.0-50.0); HGB 9.9 g/dL (13.5-17.5); Immature Grans % 0.2 %; MCH 31.1 pg (27.0-33.0); MCHC 31.5 % (32.0-36.0); MCV 99 fL (80-95); MPV 10.7 fL (8.0-11.0); RBC 3.18 10^6/uL (4.36-5.78); RDW 19.3 % (11.8-14.1); RDW-SD 69.2 fL; WBC 4.39 10^3/uL (4.4-10.8)
[2024-11-30 09:29] LABS: ALT 24 U/L (16-63); AST 57 U/L (15-37); Albumin 2.4 g/dL (3.4-5.0); Alkaline Phosphatase 226 U/L (46-116); Anion Gap 5.8 mmol/L (3-11); BUN 30 mg/dL (7-18); Bilirubin, Total 1.1 mg/dL (0.2-1.0); CO2 28.2 mmol/L (21.0-32.0); Calcium 8.7 mg/dL (8.5-10.1); Chloride 109 mmol/L (98-107); Estimated GFR 43.02 (mL/min/1.73m2); Glucose 165 mg/dL (74-106); Potassium 4.2 mmol/L (3.5-5.1); Sodium 143 mmol/L (136-145); TSH 11.78 uIU/mL (0.36-3.74); Total Protein 6.9 g/dL (6.4-8.2)
[2024-11-30 09:32] LABS: Platelet Count 72 10^3/uL (130-400); RBC Morphology Normal
== END 2024-11-30 04:07 | disposition home or self-care (01) ==
LOC: LBO 04:06
PROVIDERS: PCP Internal Medicine; Visit Provider Internal Medicine Hematology & Oncology
DX: Z79.899 Other long term (current) drug therapy (principal); C22.0 Liver cell carcinoma
CPT/HCPCS: 36415; 80053; 82105; 84439; 84443; 85025

== ENCOUNTER 2024-12-28 03:30 | Outpatient (CLI) | payer OTHER, SELFPAY ==
[2024-12-28 14:11] LABS: Abs Immature Grans 0.03 10^3/uL (0.0-0.06); HCT 28.8 % (40.0-50.0); HGB 9.5 g/dL (13.5-17.5); Immature Grans % 0.4 %; MCH 30.8 pg (27.0-33.0); MCHC 33.0 % (32.0-36.0); MCV 94 fL (80-95); MPV 10.6 fL (8.0-11.0); Platelet Count 120 10^3/uL (130-400); RBC 3.08 10^6/uL (4.36-5.78); RDW 14.6 % (11.8-14.1); RDW-SD 50.8 fL; WBC 7.12 10^3/uL (4.4-10.8)
[2024-12-28 14:35] LABS: ALT 16 U/L (16-63); AST 37 U/L (15-37); Albumin 1.7 g/dL (3.4-5.0); Alkaline Phosphatase 394 U/L (46-116); Anion Gap 9.4 mmol/L (3-11); BUN 45 mg/dL (7-18); Bilirubin, Total 2.6 mg/dL (0.2-1.0); CO2 21.6 mmol/L (21.0-32.0); Calcium 8.2 mg/dL (8.5-10.1); Chloride 102 mmol/L (98-107); Glucose 136 mg/dL (74-106); Potassium 4.1 mmol/L (3.5-5.1); Sodium 133 mmol/L (136-145); TSH 7.12 uIU/mL (0.36-3.74); Total Protein 6.3 g/dL (6.4-8.2)
== END 2024-12-28 03:31 | disposition home or self-care (01) ==
LOC: LBO 03:31
PROVIDERS: PCP Internal Medicine; Visit Provider Internal Medicine Hematology & Oncology
DX: C22.0 Liver cell carcinoma (principal); Z79.899 Other long term (current) drug therapy
CPT/HCPCS: 36415; 80053; 82105; 84439; 84443; 85025